=== PATIENT | male | born 2000 | race Caucasian/White ===

== ENCOUNTER 2021-03-22 15:10 | Emergency (ER) | payer OTHER, SELFPAY ==
[2021-03-22 15:21] VITALS: BP 124/70; PULSE 79; RESP 20; TEMP 36.6; O2SAT 100
--- NOTE | 2021-03-22 15:29 | ED.EAR ---
HPI - Ear Problem General Chief complaint: Ear Stated complaint: ear infection Time Seen by Provider: 03/22/21 15:25 Source: patient Mode of arrival: ambulatory Limitations: no limitations History of Present Illness HPI Narrative: Demetrio Rosado is a 21 yo male with no PMH who comes to the [facility] care with L ear pain and sore throat last 3 days. Denies fever, states throat hurts more the left than the right. Is able to swallow fluids and eat some. Rates pain as a 6. He is being tested for thyroid disease. Related Data Allergies Allergy/AdvReac Type Severity Reaction Status Date / Time No Known Drug Allergies Allergy Mild unknown Verified 03/18/21 10:40 UNKNOWN Allergy unknown Uncoded 01/26/21 13:23 Review of Systems Review of Systems: Narrative: CONSTITUTIONAL: Denies fever, chills, sweats. EYES: Denies visual changes, redness, discharge. ENT: Denies rhinorrhea, congestion, has sore throat, left otalgia. CARDIOVASCULAR: Denies chest pain, palpitations, edema. RESPIRATORY: Denies dyspnea, wheezing, cough GASTROINTESTINAL: Denies abdominal pain, nausea, vomiting, diarrhea. GENITOURINARY: Denies dysuria, hematuria, abnormal discharge SKIN: Denies rash or itching. NEUROLOGIC: Denies numbness, or focal weakness. PSYCHIATRIC: Denies anxiety or depression. [facility]LY [facility] Family History Family History Father Diabetes mellitus Hypertension Grandparent Breast cancer Alcoholism Social History Social History Smoking status: Never smoker Alcohol intake: never Substance use: unknown Gender identity (if verbalized by the patient): Male Comments At time of signature, I agree with nursing past medical, surgical, social and family history. There is no relevant family history pertinent to the presenting complaint. Exam Narrative: Exam Narrative: GENERAL: This is a well-nourished, well-developed patient, in mild distress. HEAD: normocephalic, atraumatic. EYES: Sclera clear/white. Vision is grossly intact. EARS: External ears normal, auditory canals some cerumen and without drainage, fluid behind TMs, left erythema without perforation. Hearing grossly intact. NOSE: External nose normal without nasal discharge, nares without redness, no rhinorrhea. THROAT: Mucous membranes moist, posterior pharynx erythema NECK: Neck supple, tender submandibular lymph node on left CARDIOVASCULAR: Regular rate and rhythm without murmurs, gallops, or rubs. RESPIRATORY: Clear to auscultation. Breath sounds equal bilaterally. No wheezes, rales, or rhonchi. GASTROINTESTINAL: Abdomen soft, non-tender, SKIN: warm, intact with no suspicious lesions or rash, good texture and turgor. NEURO: awake, alert, and oriented to person, place and time. There were no obvious focal neurologic abnormalities. Steady gait EXTREMITIES: Normal range of motion. BACK: Nontender without deformity Course Course Emergency Course: She comes to [facility] with left ear pain and sore throat x 3 days Strep test is positive Started on amoxicillin 500mg bid x 10 days, work excuse given Follow up with pcp Vital Signs Vital signs: Vital Signs Temperature 98 F 03/22/21 15:21 Pulse Rate 79 03/22/21 15:21 Respiratory Rate 20 03/22/21 15:21 Blood Pressure 124/70 03/22/21 15:21 Pulse Oximetry 100 03/22/21 15:21 Temperature 98 F 03/22/21 15:21 Pulse Rate 79 03/22/21 15:21 Respiratory Rate 20 03/22/21 15:21 Blood Pressure 124/70 03/22/21 15:21 Pulse Oximetry 100 03/22/21 15:21 Medical Decision Making Differential Diagnosis Differential Diagnosis: Pharyngitis versus strep throat versus otitis media versus otitis externa Vital Signs Vital Signs: Vital Signs Temperature 98 F 03/22/21 15:21 Pulse Rate 79 03/22/21 15:21 Respiratory Rate 20 03/22/21 15:21 Blood Pressure 124/70 03/22/21 15:21 Pulse Oximetry 100
== END 2021-03-22 15:56 | disposition home or self-care (01) ==
PROVIDERS: Emergency Provider Nurse Practitioner; PCP Physician Assistant
DX: H66.002 Acute suppurative otitis media without spontaneous rupture of ear drum, left ear (principal); J02.0 Streptococcal pharyngitis
CPT/HCPCS: 87880; 99203; G0463

== ENCOUNTER 2021-05-31 12:50 | Emergency (ER) | payer OTHER, SELFPAY ==
[2021-05-31 13:03] VITALS: BP 125/77; PULSE 77; RESP 16; TEMP 36.7; O2SAT 100
--- NOTE | 2021-05-31 13:29 | ED.GENADULT ---
HPI - General Adult General Chief complaint: Upper Respiratory Infection Stated complaint: sore throat Time Seen by Provider: 05/31/21 13:10 Source: patient and RN notes reviewed Mode of arrival: ambulatory Limitations: no limitations History of Present Illness HPI narrative: 21-year-old male presents with complaints of sore throat and LT otalgia for the past 2 days. ?Demetrio reports increasing sore throat and intermittent headache (not the worst of his life) throughout the night and today. ?Ibuprofen was taken last today at 08:00 ?with little relief. ?No high fevers, drooling, neck or throat swelling. ?Pain is bilateral. ?Hurts to swallow. ?Exacerbation factors consist of eating and drinking. ?No rhinorrhea. ?Nasal congestion. ?No voice change. ?Denies ear drainage, itching, hearing loss, or trauma. ?No nausea, vomiting, or abdominal pain. ?Tolerating liquids well. ?Denies chills, dyspnea, difficulty swallowing, jaw pain, dental pain, facial pain, foreign body sensation, and rash. ?Remains active. ?The patient reports he has not been diagnosed with COVID-19. ?The patient reports he received [facility] COVID-19 vaccines. ?The patient reports he is not waiting for the results of a COVID-19 lab test. ?The patient reports he does not have weakness, fatigue, or myalgia. ?The patient reports he does not have a new or worsening cough or shortness of breath. ?The patient reports he does not have any loss of taste or smell and diarrhea. ?Denies recent traveling. ?Denies concerns for COVID-19 or exposures. ?At this time, the patient is not suspected of having COVID-19. Some parts of this dictation were generated by voice recognition software and may contain typographical and/or grammatical inaccuracies. Related Data Allergies Allergy/AdvReac Type Severity Reaction Status Date / Time No Known Allergies Allergy Verified 05/31/21 13:19 Review of Systems Review of Systems: CONSTITUTIONAL: Denies fever, chills, sweats. EYES: Denies visual changes, redness, discharge. ENT: Denies rhinorrhea. Complains of sore throat, congestion, LT otalgia. CARDIOVASCULAR: Denies chest pain, palpitations, edema. RESPIRATORY: Denies dyspnea, wheezing, cough. GASTROINTESTINAL: Denies abdominal pain, nausea, vomiting, diarrhea. SKIN: Denies rash or itching. MUSCULOSKELETAL: Denies acute back pain, joint pain, or myalgia. NEUROLOGIC: Denies numbness or focal weakness. Complaints of intermittent JIMÉNEZ. PSYCHIATRIC: Denies anxiety or depression. All systems reviewed & are unremarkable except as noted in HPI and below. [facility] Past Medical History Medical History (Updated 06/01/21 @ 00:01 by Delmi Aguirre) Abnormal TSH Obesity (BMI 30.0-34.9) Surgical History Surgical History (Updated 05/31/21 @ 13:37 by TRAM Villalpando) No significant past surgical history Family History Family History (Updated 05/31/21 @ 13:38 by TRAM Villalpando) Father Diabetes mellitus Hypertension Grandparent Breast cancer Alcoholism Mother Alive and well Social History Social History (Updated 05/31/21 @ 13:39 by TRAM Villalpando) Smoking status: Light tobacco smoker Tobacco type: cigars Second hand tobacco smoke exposure: No Alcohol intake: never Substance use: current Substance use type: marijuana Living arrangements: with family Occupation/Education: occupation Gender identity (if verbalized by the patient): Male Comments At time of signature, agree with the nurse past medical, surgical, social, and family history. There is no relevant family history pertinent to the presenting complaint. Exam Narrative: GENERAL: This is a well-nourished, well-developed patient, in no apparent distress. Speaks in full sentences without deficits and ambulates with steady gait without dyspnea. HEAD: Normocephalic, atraumatic. EYES: PERRL. Sclera clear/white. Vision is grossly intact. EARS: External ears normal, auditory canals clear and
== END 2021-05-31 13:54 | disposition home or self-care (01) ==
PROVIDERS: Emergency Provider Nurse Practitioner Family; PCP Internal Medicine
DX: J02.9 Acute pharyngitis, unspecified (principal); K12.0 Recurrent oral aphthae; E66.9 Obesity, unspecified; Z68.33 Body mass index [BMI] 33.0-33.9, adult; Z72.0 Tobacco use
CPT/HCPCS: 87081; 87880; 99213; G0463

== ENCOUNTER → 2021-06-27 07:00 | Outpatient (CLI) | payer OTHER, SELFPAY ==
[2021-06-27 21:00] LABS: SARS-CoV-2 RNA PCR Negative
== END ==
PROVIDERS: PCP Internal Medicine; Visit Provider Physician Assistant
DX: R68.89 Other general symptoms and signs (principal); Z20.828 Contact with and (suspected) exposure to other viral communicable diseases
CPT/HCPCS: C9803; U0003; U0005

== ENCOUNTER 2022-04-05 17:33 | Emergency (ER) | payer OTHER, SELFPAY ==
--- NOTE | 2022-04-05 17:38 | ED.EAR ---
HPI - Ear Problem General Chief complaint: Ear Stated complaint: lt ear pain Time Seen by Provider: 04/05/22 17:39 Source: patient Mode of arrival: ambulatory Limitations: no limitations History of Present Illness HPI Narrative: Mr. Rosado is a 22-year-old male patient presenting to the clinic today with complaints of left ear pain x2 days. He reports he is prone to getting ear infections. He reports that he is also having some pain in his throat on the left side. He denies any fever or chills. He denies any known exposure to anybody with COVID, flu, or strep. MD Complaint: ear pain Location: left ear Related Data Allergies Allergy/AdvReac Type Severity Reaction Status Date / Time No Known Allergies Allergy Verified 04/05/22 17:40 Review of Systems Review of Systems: Pertinent positives per HPI. Patient denies any fever, chills, rash, headache, visual changes, dizziness, cough, runny nose, sore throat, shortness of breath, chest pain, palpitations, nausea, vomiting, diarrhea, constipation, abdominal pain, or any urinary issues. PMFSH Past Medical History Medical History Abnormal TSH Obesity (BMI 30.0-34.9) Surgical History Surgical History No significant past surgical history Family History Family History Father Diabetes mellitus Hypertension Grandparent Breast cancer Alcoholism Mother Alive and well Social History Social History Smoking status: Current some day smoker Tobacco type: cigars Second hand tobacco smoke exposure: No Alcohol intake: never Substance use: current Substance use type: marijuana Gender identity (if verbalized by the patient): Male Comments At the time of my signature, I reviewed and agree with the nursing past medical, surgical, social, and family history. There is no relevant family history pertinent to the patient complaint. Exam Narrative: General: Well-developed, well nourished, in no apparent distress Head: Normocephalic, atraumatic Eyes: Pupils equally round and reactive to light bilaterally, EOM intact, sclera and conjunctive clear, no discharge, lids normal Ears: Right TMs intact and clear, left TM dull, intact, with mild bulging,ear canals clear, no drainage, grossly hearing normal. Nose: Nares patent, clear nasal discharge, mild inflammation, no sinus tenderness. Mouth: Oropharynx without lesions or masses, good dentition, MMM. Postnasal drip Neck: Supple, trachea midline, no enlargement of anterior or posterior cervical nodes, no thyroid masses or goiter palpable. Cardio: Regular rate and rhythm, s1 and s2 normal, no murmur appreciated. Resp: Clear to auscultation bilaterally anteriorly and posteriorly, no rhonchi, rales, wheezing or rubs Course Course Emergency Course: Portions of this record may have been created with voice recognition software. Level of Care: Express Care Visit Vital Signs Vital signs: Vital signs reviewed Medical Decision Making MDM Narrative Medical decision making narrative: At the time of visit patient is resting comfortably on the exam table. Exam shows that he has eustachian tube dysfunction. He is complaining of a sore throat as well on the left side so I went ahead and did a strep screen which was negative in the clinic. We will send for culture. Supportive measures were discussed with the patient. I will send in a prescription for some prednisone to help with the congestion and alleviate the ear pressure. Patient voiced understanding of the discharge instructions and agrees to the treatment plan. Discharge Plan Discharge Clinical Impression: Acute dysfunction of left eustachian tube Patient Disposition: Home, Self-Care Condition: Stable Instructions
[2022-04-05 17:46] VITALS: BP 122/87; PULSE 85; RESP 16; TEMP 37.1; O2SAT 100
== END 2022-04-05 18:04 | disposition home or self-care (01) ==
PROVIDERS: Emergency Provider Nurse Practitioner Family; PCP Internal Medicine
DX: H69.92 Unspecified Eustachian tube disorder, left ear (principal); F17.290 Nicotine dependence, other tobacco product, uncomplicated; E66.9 Obesity, unspecified; Z68.31 Body mass index [BMI] 31.0-31.9, adult
CPT/HCPCS: 87081; 87880; 99213; G0463

== ENCOUNTER 2022-05-10 16:17 | Emergency (ER) | payer OTHER, SELFPAY ==
[2022-05-10 16:28] VITALS: BP 135/79; PULSE 84; RESP 18; TEMP 37.2; O2SAT 99
--- NOTE | 2022-05-10 17:03 | ED.URI ---
HPI - URI/Sore Throat General Chief Complaint: Upper Respiratory Infection Stated Complaint: sorethroat,rt ear pain Time Seen by Provider: 05/10/22 16:40 Source: patient Mode of arrival: ambulatory Limitations: no limitations History of Present Illness HPI Narrative: Patient presents today complaining of 4-day history of sore throat, right ear pain, cough, headache, subjective fever. States he also vomited 1 time today. Currently rates his pain 5/10 and has been taking ibuprofen and Mucinex with mild relief. Reports his girlfriend was diagnosed with COVID-19 4 days ago. He has done 3 home COVID test that were all negative. Denies chest pain, shortness of breath. Related Data Allergies Allergy/AdvReac Type Severity Reaction Status Date / Time No Known Allergies Allergy Verified 05/10/22 16:37 Review of Systems Review of Systems: CONSTITUTIONAL: Denies body aches, chills, or sweats.+ Subjective fever EYES: Denies visual changes, redness, or discharge. ENT: Denies rhinorrhea, congestion.+ Sore throat, right ear pain CARDIOVASCULAR: Denies chest pain, palpitations, or edema. RESPIRATORY: Denies dyspnea.+ Cough GASTROINTESTINAL: Denies abdominal pain, nausea, vomiting, or diarrhea. GENITOURINARY: Denies dysuria or hematuria. SKIN: Denies rash, itching, or wounds. MUSCULOSKELETAL: Denies back pain, joint pain, or myalgia. NEUROLOGIC: Denies numbness, tingling, or weakness.+ Headache PSYCH: Denies depression or anxiety. FORMERLY [facility] Past Medical History Medical History Abnormal TSH Obesity (BMI 30.0-34.9) Surgical History Surgical History No significant past surgical history Family History Family History Father Diabetes mellitus Hypertension Grandparent Breast cancer Alcoholism Mother Alive and well Social History Social History Smoking status: Current some day smoker Tobacco type: cigars Second hand tobacco smoke exposure: No Alcohol intake: never Substance use: current Substance use type: marijuana Gender identity (if verbalized by the patient): Male Comments At time of signature, I have reviewed and agree with nursing past medical, surgical, social and family history unless otherwise noted. Please see nursing chart for further information. There is no relevant family history pertinent to the presenting complaint Exam Narrative: GENERAL: Well-appearing, well-nourished, and in no acute distress. HEAD: Normocephalic, atraumatic. EYES: EOMI. No redness or drainage. Conjunctivae normal. ENT: Mucous membranes pink and moist. Nares clear. No rhinorrhea. TMs normal bilaterally. Mild right middle ear effusion without evidence of bacterial infection. normal. Uvula midline. NECK: Normal AROM. Supple. No lymphadenopathy. CHEST: No respiratory distress. Clear to auscultation. HEART: Regular rate and rhythm. No murmur appreciated. Normal peripheral pulses. EXTREMITIES: Normal range of motion. No edema. SKIN: Warm, dry, no rash. Capillary refill normal. Normal skin turgor. NEURO: No focal deficits. Alert and oriented x3. Gait steady. PSYCH: Normal affect. No signs of depression or anxiety. Course Course Level of Care: Express Care Visit Vital Signs Vital signs: Vital Signs Temperature 99 F 05/10/22 16:28 Pulse Rate 84 05/10/22 16:28 Respiratory Rate 18 05/10/22 16:28 Blood Pressure 135/79 05/10/22 16:28 Pulse Oximetry 99 05/10/22 16:28 Oxygen Delivery Room Air 05/10/22 16:28 Temperature 99 F 05/10/22 16:28 Pulse Rate 84 05/10/22 16:28 Respiratory Rate 18 05/10/22 16:28 Blood Pressure 135/79 05/10/22 16:28 Pulse Oximetry 99 05/10/22 16:28 Oxygen Delivery Room Air 05/10/22 16:28 Reviewed. Pt has been
== END 2022-05-10 17:18 | disposition home or self-care (01) ==
PROVIDERS: Emergency Provider Nurse Practitioner; PCP Physician Assistant
DX: J06.9 Acute upper respiratory infection, unspecified (principal); Z20.822 Contact with and (suspected) exposure to COVID-19; F17.290 Nicotine dependence, other tobacco product, uncomplicated; E66.9 Obesity, unspecified; Z68.31 Body mass index [BMI] 31.0-31.9, adult
CPT/HCPCS: 87081; 87426; 87804; 87880; 99213; C9803; G0463

== ENCOUNTER 2022-07-19 12:29 | Emergency (ER) | payer OTHER, SELFPAY ==
[2022-07-19 12:41] VITALS: BP 129/80; PULSE 97; RESP 18; TEMP 36.9; O2SAT 100
--- NOTE | 2022-07-19 12:49 | ED.URI ---
HPI - URI/Sore Throat General Chief Complaint: Upper Respiratory Infection Stated Complaint: sorethroat Time Seen by Provider: 07/19/22 12:49 Source: patient and RN notes reviewed Mode of arrival: ambulatory Limitations: no limitations History of Present Illness HPI Narrative: 22-year-old male presented for complaints of sore throat for 3 days. Also endorses sinus pressure and congestion, postnasal drainage and productive cough. At the onset he endorses a subjective low-grade fever, headache and nausea. Took a negative home COVID test yesterday. He denies chest pain, shortness of breath, vomiting, fevers or chills. Taking [id number] medication for symptoms. Denies sick contacts. MD elicited complaint: cough Related Data Allergies Allergy/AdvReac Type Severity Reaction Status Date / Time No Known Allergies Allergy Verified 07/19/22 12:48 Review of Systems Review of Systems: CONSTITUTIONAL: Denies malaise, chills, sweats EYES: Denies visual changes, redness, or discharge ENT: Reports rhinorrhea, congestion, sinus pain, otalgia, sore throat CARDIOVASCULAR: Denies chest pain, palpitations, edema RESPIRATORY: Reports cough, post nasal drainage. Denies dyspnea GASTROINTESTINAL: Denies abdominal pain, nausea, vomiting, diarrhea SKIN: Denies rash or itching MUSCULOSKELETAL: Denies myalgia PMFSH Past Medical History Medical History Abnormal TSH Obesity (BMI 30.0-34.9) Surgical History Surgical History No significant past surgical history Family History Family History Father Diabetes mellitus Hypertension Grandparent Breast cancer Alcoholism Mother Alive and well Social History Social History Smoking status: Current some day smoker Tobacco type: cigars Second hand tobacco smoke exposure: No Alcohol intake: never Substance use: current Substance use type: marijuana Gender identity (if verbalized by the patient): Male Exam Narrative: GENERAL: well-appearing EYES: PERRLA, conjunctivae clear ENT: Mucous membranes moist. TMs pearly begum with normal l light reflex bilaterally; no tragal tenderness. Oropharynx erythematous without lesions or exudate, no drooling, no hoarseness, no trismus, uvula midline. No tripod positioning, muffled voice, soft palate or pharyngeal wall bulging NECK: Supple. No lymphadenopathy CHEST: Clear to auscultation, breath sounds equal. HEART: Regular rate and rhythm. No murmur heard. SKIN: Warm, dry, no rash. NEURO: Alert and oriented x3. Course Course Emergency Course: Patient is aware of diagnosis, understands and agrees to treatment plan. Anticipatory guidance given. Patient agrees to follow-up as directed and is aware of reasons to seek care at the emergency department. Portions of this record may have been created with voice recognition software Level of Care: Express Care Visit Vital Signs Vital signs: Vital Signs Temperature 98.4 F 07/19/22 12:41 Pulse Rate 97 07/19/22 12:41 Respiratory Rate 18 07/19/22 12:41 Blood Pressure 129/80 07/19/22 12:41 Pulse Oximetry 100 07/19/22 12:41 Oxygen Delivery Room Air 07/19/22 12:41 Temperature 98.4 F 07/19/22 12:41 Pulse Rate 97 07/19/22 12:41 Respiratory Rate 18 07/19/22 12:41 Blood Pressure 129/80 07/19/22 12:41 Pulse Oximetry 100 07/19/22 12:41 Oxygen Delivery Room Air 07/19/22 12:41 reviewed MDM - URI/Sore Throat MDM Narrative Medical decision making narrative: Strep negative. Advised supportive measures and signs/symptoms to go to the ER. Pt is appropriate for outpt treatment and f/u. Differential Diagnosis Differential diagnosis: Likely upper respiratory infection, sinusitis, viral infection and pharyngitis Discharge Plan
== END 2022-07-19 13:01 | disposition home or self-care (01) ==
PROVIDERS: Emergency Provider Nurse Practitioner Family; PCP Internal Medicine
DX: J30.9 Allergic rhinitis, unspecified (principal); F17.290 Nicotine dependence, other tobacco product, uncomplicated
CPT/HCPCS: 87081; 87880; 99213; G0463

== ENCOUNTER 2023-01-01 10:48 | Emergency (ER) | payer OTHER, SELFPAY ==
[2023-01-01 11:11] VITALS: BP 123/71; PULSE 82; RESP 16; TEMP 36.3; O2SAT 100
--- NOTE | 2023-01-01 11:40 | ED.GENADULT ---
HPI - General Adult General Chief complaint: Upper Respiratory Infection Stated complaint: sorethroat Time Seen by Provider: 01/01/23 11:40 Source: patient Mode of arrival: ambulatory Limitations: no limitations History of Present Illness HPI narrative: 22-year-old male patient presents to the [facility] with complaints of sore throat past 5 days. Patient states he has also had a cough coughing up mucus with a slight runny nose congestion. Fevers, body aches or chills any abdominal pain, nausea vomiting or diarrhea. Patient states he has been taking [id number] Mucinex, cough drops and ibuprofen for his symptoms. Related Data Home Medications Medication Instructions Recorded Confirmed No Home Medications 01/01/23 01/01/23 Allergies Allergy/AdvReac Type Severity Reaction Status Date / Time No Known Allergies Allergy Verified 01/01/23 11:37 Review of Systems Review of Systems: CONSTITUTIONAL: Denies fever, chills, or sweats. EYES: Denies visual changes, redness, or discharge. ENT: positive rhinorrhea, congestion, sore throat, denies otalgia. CARDIOVASCULAR: Denies chest pain, palpitations, or edema. RESPIRATORY: positive cough, denies dyspnea. GASTROINTESTINAL: Denies abdominal pain, nausea, vomiting, or diarrhea. GENITOURINARY: Denies dysuria or hematuria. SKIN: Denies rash or itching. MUSCULOSKELETAL: Denies back pain, joint pain, or myalgia. NEUROLOGIC: Denies headache, numbness, or weakness. PSYCHIATRIC: Denies anxiety or depression. [facility] Past Medical History Medical History Abnormal TSH Obesity (BMI 30.0-34.9) Surgical History Surgical History No significant past surgical history Family History Family History Father Diabetes mellitus Hypertension Grandparent Breast cancer Alcoholism Mother Alive and well Social History Social History Smoking status: Current some day smoker Tobacco type: cigars Second hand tobacco smoke exposure: No Alcohol intake: never Substance use: current Substance use type: marijuana Living arrangements: with family Occupation/Education: occupation Gender identity (if verbalized by the patient): Male Comments At the time of my signature I agree with nursing past medical history, surgical, social, and family history. There is no relevant family history pertinent to the presenting complaint. Exam Narrative: GENERAL: Well-appearing, well-nourished, and in no acute distress. HEAD: Normocephalic, atraumatic. EYES: PERRLA and EOMI. ENT: Nares With erythema and edema noted bilaterally, no rhinorrhea or epistaxis. Mucous membranes moist. posterior pharynx with no erythema, tonsillar enlargement, exudates or lesions present. There is some postnasal drip noted. Bilateral TMs are clear no erythema or foreign bodies in the canal. NECK: Supple. No lymphadenopathy CHEST: Clear to auscultation. No respiratory distress. HEART: Regular rate and rhythm. No murmur heard. Normal peripheral pulses. ABDOMEN: Soft, nontender, nondistended, normal active bowel sounds. EXTREMITIES: Normal range of motion. No edema. SKIN: Warm, dry, no rash. NEURO: No focal deficits. Alert and oriented x3. Course Course Level of Care: Express Care Visit Vital Signs Vital signs: Vital Signs Temperature 36.3 C L 01/01/23 11:11 Pulse Rate 82 01/01/23 11:11 Respiratory Rate 16 01/01/23 11:11 Blood Pressure 123/71 01/01/23 11:11 Pulse Oximetry 100 01/01/23 11:11 Oxygen Delivery Room Air 01/01/23 11:11 Temperature 36.3 C L 01/01/23 11:11 Pulse Rate 82 01/01/23 11:11 Respiratory Rate 16 01/01/23 11:11 Blood Pressure 123/71 01/01/23 11:11 Pulse Oximetry 100 01/01/23 11:11 Oxygen Delivery Room Air 01/01/23 11:11
== END 2023-01-01 11:54 | disposition home or self-care (01) ==
PROVIDERS: Emergency Provider Nurse Practitioner Family; PCP Internal Medicine
DX: J02.9 Acute pharyngitis, unspecified (principal); F17.290 Nicotine dependence, other tobacco product, uncomplicated; F12.90 Cannabis use, unspecified, uncomplicated; E66.9 Obesity, unspecified; Z68.38 Body mass index [BMI] 38.0-38.9, adult
CPT/HCPCS: 87081; 87880; 99213; G0463

== ENCOUNTER 2023-03-05 19:16 | Emergency (ER) | payer OTHER, SELFPAY ==
[2023-03-05 19:28] VITALS: BP 130/89; PULSE 89; RESP 16; TEMP 36.4; O2SAT 99
[2023-03-05 19:58] LABS: Basophils Absolute Auto 0.1 K/mm3 (0.0-0.1); Basophils Percent Auto 0.8 % (0.2-1.2); Eosinophils Absolute Auto 0.1 K/mm3 (0-0.3); Eosinophils Percent Auto 1.7 % (0-4.4); Hematocrit 43.3 % (42.0-52.0); Hemoglobin 14.8 g/dL (14.0-18.0); Immature Granulocyte Absolute 0.01 K/mm3 (0.00-0.031); Immature Granulocyte Percent A 0.2 % (0-0.5); Lymphocytes Absolute Auto 1.81 K/mm3 (0.9-3.2); Mean Corpuscular HGB Conc 34.2 g/dl (32-36); Mean Corpuscular Hemoglobin 28.9 pg (26-34); Mean Corpuscular Volume 84.6 fl (80-100); Mean Platelet Volume 9.8 fl (7.4-10.4); Monocytes Absolute Auto 0.7 K/mm3 (0.1-0.6); Monocytes Percent Auto 11.1 % (2.6-8.5); Neutrophils Absolute Auto 3.8 K/mm3 (1.3-6.7); Neutrophils Percent Auto 58.2 % (45.5-73.1); Platelet Count Result 287 k/mm3 (150-375); Red Blood Count 5.12 M/mm3 (4.6-6.20); Red Cell Distribution Width 12.3 % (11.5-14.5); White Blood Count 6.5 K/mm3 (4.5-10.0)
[2023-03-05 20:01] LABS: Appearance Urine Clear (Clear); Bilirubin Urine Negative (Negative); Blood Urine Negative (Negative); Color Urine Yellow (Yellow); Glucose Urine UA Negative (Negative); Ketones Urine Negative (Negative); Leukocyte Esterase Ur Negative LEU/UL (Negative); Nitrate Urine Negative (Negative); Protein Urine Negative (Negative); Specific Grav Ur 1.027 (1.001-1.035); Urobilinogen Urine 0.2 mg/dL (<2.0); pH Urine 5.5 (5.0-9.0)
[2023-03-05 20:09] LABS: Alanine Aminotransferase 37 U/L (6-50); Albumin Level 4.7 g/dL (3.5-5.1); Alkaline Phosphatase 55 U/L (38-126); Anion Gap 11 mmol/L (8-16); Aspartate Amino Transferase 32 U/L (17-59); Bilirubin,Total 0.5 mg/dL (0.2-1.3); Blood Urea Nitrogen 17 mg/dL (9-20); Calcium 9.5 mg/dL (8.4-10.2); Carbon Dioxide 23 mmol/L (22-30); Chloride 104 mmol/L (98-107); Estimated CRCL calculation 113 ml/min; Estimated Glomerular Filt Rate > 60; Glucose 100 mg/dL (65-110); Lipase 138 U/L (23-300); Potassium 4.1 mmol/L (3.4-5.0); Sodium 138 mmol/L (137-145)
[2023-03-05 20:34] LABS: Add Urine Microscopic? NO
[2023-03-05 22:00] VITALS: BP 127/98; PULSE 90; RESP 15; TEMP 36.4; O2SAT 97
--- NOTE | 2023-03-05 23:01 | ED.GENADULT ---
HPI - General Adult General Chief complaint: Nausea/Vomiting/Diarrhea Stated complaint: vomiting Time Seen by Provider: 03/05/23 21:58 History of Present Illness HPI narrative: This is a 23-year-old male presenting ED a chief complaint of vomiting blood. Patient had a meal of Chick filet earlier today. He then had 1 episode of vomiting that he was concerned had blood in it. He says that it was red. No coffee-grounds. Patient has some mild abdominal pain at this point that is diffuse throughout his abdomen and is not bothering him very much. Patient denies melena or hematochezia. He has no history of gastritis or epigastric pain. Related Data Allergies Allergy/AdvReac Type Severity Reaction Status Date / Time No Known Allergies Allergy Verified 02/08/23 09:40 [facility] Past Medical History Medical History Abnormal TSH Obesity (BMI 30.0-34.9) Surgical History Surgical History No significant past surgical history Family History Family History Father Diabetes mellitus Hypertension Grandparent Breast cancer Alcoholism Mother Alive and well Social History Social History Smoking status: Former smoker Tobacco type: cigars Second hand tobacco smoke exposure: No Alcohol intake: never Substance use: current Substance use type: marijuana Lack of Transportation: No Lack of Food: Never True Current Housing: I Have Housing Concerned About Future Housing: No Difficulty Paying Gas/Electric Bills: No Difficulty Paying for Meds: No Currently Unemployed: No Education: Associate Degree Difficulty w/ Childcare or Family Care: No Living arrangements: with family Occupation/Education: occupation Gender identity (if verbalized by the patient): Male Exam Narrative: APPEARANCE: No apparent distress. patient is well. Head: atraumatic. EYES: EOMI, NOSE: Atraumatic NECK: Trachea midline RESPIRATORY: No increased rate of breathing , clear to auscultation CARDIOVASCULAR: RRR, ABDOMINAL: Abdomen is soft, nontender no guarding or rebound MUSCULOSKELETAl: No obvious deformities NEURO: Alert. Moving 4/4 extremities SKIN:: Warm, dry. Normal color PSYCHIATRIC: Normal affect Course Vital Signs Vital signs: Vital Signs Temperature 97.6 F 03/05/23 19:28 Pulse Rate 89 03/05/23 19:28 Respiratory Rate 16 03/05/23 19:28 Blood Pressure 130/89 03/05/23 19:28 Pulse Oximetry 99 03/05/23 19:28 Oxygen Delivery Room Air 03/05/23 19:28 Temperature 97.6 F 03/05/23 22:00 Pulse Rate 90 03/05/23 22:00 Respiratory Rate 15 03/05/23 22:00 Blood Pressure 127/98 H 03/05/23 22:00 Pulse Oximetry 97 03/05/23 22:00 Oxygen Delivery Room Air 03/05/23 19:28 Medical Decision Making MDM Narrative Medical decision making narrative: -Presentation: 23-year-old presenting with concerns for bloody vomiting. Patient is currently resting comfortably with normal abdominal exam and stable vital signs. -DDX includes but is not limited to: Nausea and vomiting, food poisoning, gastritis -Co-morbidities complicating care: obesity, depression -Social determinants of health: patient works at [id number] with mom -External Chart Review: review primary care office note on January 2023 -Hx from independent Sources: mother @bedside -Discussion of Management/Consultants: none -Independent interpretation of studies: laboratory studies were within normal limits. Urinalysis not indicative of infection. Dx tests considered but not ordered: None -Procedures: none -Interventions: none -Shared decision making / Disposition: patient's history physical and workup were all reassuring. He does not have recurrence of his nausea and vomiting. Patient has no his
== END 2023-03-05 23:37 | disposition home or self-care (01) ==
PROVIDERS: Emergency Provider Emergency Medicine; PCP Physician Assistant
DX: R11.2 Nausea with vomiting, unspecified (principal); Z87.891 Personal history of nicotine dependence
CPT/HCPCS: 36415; 80053; 81003; 83690; 85025; 99283

== ENCOUNTER 2025-05-05 14:36 | Emergency (ER) | payer BC, OTHER, SELFPAY ==
--- OUTSIDE RECORDS SUMMARY | 2025-05-05 14:38 | XMS_ITS | Patient Health Record ---
Author Organization [facility] As [employer] Address [facility] [facility] [address] [place] [address] Care Team Providers Care Manager Paid Name Role Phone Richie Pedroza Unavailable [phone] Allergies No Known Allergies Results Component Value Reference Range Notes UDT Reviewed date:10/03/2024 08:30:26 AM Interpretation: Performing Lab: Notes/Report: THC N 0 - 50 ng/ml Cocaine N 0 - 300 ng/ml Amphetamine N 0 - 1000 ng/ml Buprenorphine (BUP) N 0 - 10 ng/ml Secobarbital (Bar) N 0 - 300 ng/ml Oxazepam (BZO) N 0 - 300 ng/ml 0-fmcymhdwip-0,2-elkmendp-6,3-diphenylpyrrolidine (PITA P) N 0 - 300 ng/ml Methamphetamine (MET) N 0 - 1000 ng/ml Methylenedioxymethamphetamine (MDMA) N 0 - 500 ng/ml Morphine (MOP 300/[id number]) N 0 - 300 ng/ml Methadone (MTD) N 0 - 300 ng/ml Phencyclidine (PCP) N 0 - 25 ng/ml Nortriptyline (TCA) N 0 - 1000 ng/ml Oxycodone N 0 - 300 ng/ml x N 0 - 300 ng/ml Reason For Referral No Information Medications Medication SIG (Take, Route, Fr equency, Duration) Notes Start Date End Date Status FLUoxetine HCl 20 MG 1 capsule Orally On ce a day; Duration: 30 days 10/02/2024 Active Social History Tobacco Use: Social History Observation Description Date Details (start date - stop date) Never Smoker NA - NA Sex Assigned At : Social History Observation Description Sex Assigned At Male Tobacco Control (Standard) Question Answer Notes Tobacco use: Nonsmoker AUDIT-C (Standard) Question Answer Notes Did you have a drink contain ing alcohol in the past year? Yes How often did you have six o r more drinks on one occasion in the past year? 2 to 3 times per week (3 points) How many drinks did you have on a typical day when you were drinking in the past year? 1 or 2 drinks (0 point) How often did you have a dri nk containing alcohol in the past year? Monthly or less (1 point) Points 4 Interpretation Positive Problems Problem Type SNOMED Code ICD Code Onset Dates Problem Status W/U Status Risk Notes Problem Severe major depression, single episode, without psychotic features (48779187) MDD (major depressive disorder), severe (F32.2) Active confirmed Problem Feeling suicidal (733441158) Passive suicidal ideations (R45.851) Active confirmed Vital Signs Heart Rate 77 /min 10/02/2024 Blood pressure diastolic 81 mm Hg 10/02/2024 Weight-kg 118.48 kg 10/02/2024 Blood pressure systolic 105 mm Hg 10/02/2024 Weight 261.2 lbs 10/02/2024 Encounters Encounter Location Date Provider Diagnosis [facility] [place] [facility] [address] 10/02/2024 Richie Clubb MDD (major depressiv e disorder), severe F32.2 and Passive suicidal ideations R45.851 [facility] [employer] [facility], [place] [address] [facility] [address] [place] [address] 11/13/2024 Richie Clubb [facility] [employer] [facility] [address] [address] 11/04/2024 Richie Clubb MDD (major depressiv e disorder), severe F32.2 Assessments Encounter Date Diagnosis (ICD Code) Assessment Notes Treatment Notes Treatment Clinical Notes Section Notes 10/02/2024 MDD (major depressive disorder), severe (ICD-10 - F32.2) Assessment and plan reviewed with patient Call for problems with medication, side effects or need for dosage change Compliance issues reviewed Discussed the risks/benefits of this medication Discussed medication side effects Return if symptoms worsen Treatment options reviewed. discussed that it can take weeks to see full therapeutic effects of psychotropic medications. discussed when to seek emergency services. discussed crisis prevention hotline [id number]. 1. Major Depressive Disorder, severe - Patient reports history of depression and recent passive suicidal thoughts. - BDI score: 27 (severe depression). - PHQ score: 19 (moderate to severe depression). - Patient reports feeling depressed for about 4 months, with similar episode end of 2020. - Start Fluoxetine (Prozac) for depression, instruct to take in morning. - Monitor for side effects and response to treatment. - Encourage re-establishing regular therapy sessions. - Follow up with primary care provider in October or return within 30 days. 2. Generalized Anxiety Disorder - REDD score: 8 (mild anxiety). - Fluoxetine (Prozac) may also help with anxiety symptoms. - Encourage continuing therapy for anxiety management. - Monitor response to treatment, consider additional interventions if needed. 3. Sleep disturbance - Patient reports waking up intermittently throughout the night. - Address sleep hygiene and encourage consistent sleep schedule. - Monitor sleep improvement with treatment of depression and anxiety. 4. Irregular appetite - Patient reports days of under-eating and over-eating due to job schedule. - Works 10-hour shifts from 6 am to 4 pm. - Encourage establishing regular eating schedule and balanced diet. - Monitor appetite changes with treatment of depression and anxiety. 5. Prior medication history - Patient previously took Bupropion but experienced emotional numbness. - Discontinue Bupropion and monitor response to Fluoxetine (Prozac). 6. Alcohol use - Patient reports occasional alcohol consumption, approximately once a week. - Advise avoiding alcohol while on Fluoxetine (Prozac) due to potential interactions and exacerbation of depression symptoms. 7. Medication management - Patient reports potential issues with medication compliance due to forgetfulness. - Educate on importance of consistent medication use. - Emphasize need for follow-up within 30 days, either with primary care or return visit. 8. Psychosocial factors - Patient lives with parents. - Recently started new job 3 months ago, source of stress. - Encourage continued family support. - Discuss stress management techniques related to new job. 9. Ongoing therapy - Patient has therapist but attendance has been sporadic recently. - Emphasize importance of regular therapy sessions. - Encourage resuming weekly therapy appointments. 10/02/2024 Passive suicidal ideations (ICD-10 - R45.851) Learning About Making a Suicide Safety Plan material was published 1. Major Depressive Disorder, severe - Patient reports history of depression and recent passive suicidal thoughts. - BDI score: 27 (severe depression). - PHQ score: 19 (moderate to severe depression). - Patient reports feeling depressed for about 4 months, with similar episode end of 2020. - Start Fluoxetine (Prozac) for depression, instruct to take in morning. - Monitor for side effects and response to treatment. - Encourage re-establishing regular therapy sessions. - Follow up with primary care provider in October or return within 30 days. 2. Generalized Anxiety Disorder - REDD score: 8 (mild anxiety). - Fluoxetine (Prozac) may also help with anxiety symptoms. - Encourage continuing therapy for anxiety management. - Monitor response to treatment, consider additional interventions if needed. 3. Sleep disturbance - Patient reports waking up intermittently throughout the night. - Address sleep hygiene and encourage consistent sleep schedule. - Monitor sleep improvement with treatment of depression and anxiety. 4. Irregular appetite - Patient reports days of under-eating and over-eating due to job schedule. - Works 10-hour shifts from 6 am to 4 pm. - Encourage establishing regular eating schedule and balanced diet. - Monitor appetite changes with treatment of depression and anxiety. 5. Prior medication history - Patient previously took Bupropion but experienced emotional numbness. - Discontinue Bupropion and monitor response to Fluoxetine (Prozac). 6. Alcohol use - Patient reports occasional alcohol consumption, approximately once a week. - Advise avoiding alcohol while on Fluoxetine (Prozac) due to potential interactions and exacerbation of depression symptoms. 7. Medication management - Patient reports potential issues with medication compliance due to forgetfulness. - Educate on importance of consistent medication use. - Emphasize need for follow-up within 30 days, either with primary care or return visit. 8. Psychosocial factors - Patient lives with parents. - Recently started new job 3 months ago, source of stress. - Encourage continued family support. - Discuss stress management techniques related to new job. 9. Ongoing therapy - Patient has therapist but attendance has been sporadic recently. - Emphasize importance of regular therapy sessions. - Encourage resuming weekly therapy appointments. 11/04/2024 MDD (major depressive disorder), severe (ICD-10 - F32.2) 10/02/2024 Other Learning About Depression Screening material was printed Learning About Depression Screening material was printed, Fluoxetine Oral Capsule (FLUOXETINE - ORAL) material was published 1. Major Depressive Disorder, severe - Patient reports history of depression and recent passive suicidal thoughts. - BDI score: 27 (severe depression). - PHQ score: 19 (moderate to severe depression). - Patient reports feeling depressed for about 4 months, with similar episode end of 2020. - Start Fluoxetine (Prozac) for depression, instruct to take in morning. - Monitor for side effects and response to treatment. - Encourage re-establishing regular therapy sessions. - Follow up with primary care provider in October or return within 30 days. 2. Generalized Anxiety Disorder - REDD score: 8 (mild anxiety). - Fluoxetine (Prozac) may also help with anxiety symptoms. - Encourage continuing therapy for anxiety management. - Monitor response to treatment, consider additional interventions if needed. 3. Sleep disturbance - Patient reports waking up intermittently throughout the night. - Address sleep hygiene and encourage consistent sleep schedule. - Monitor sleep improvement with treatment of depression and anxiety. 4. Irregular appetite - Patient reports days of under-eating and over-eating due to job schedule. - Works 10-hour shifts from 6 am to 4 pm. - Encourage establishing regular eating schedule and balanced diet. - Monitor appetite changes with treatment of depression and anxiety. 5. Prior medication history - Patient previously took Bupropion but experienced emotional numbness. - Discontinue Bupropion and monitor response to Fluoxetine (Prozac). 6. Alcohol use - Patient reports occasional alcohol consumption, approximately once a week. - Advise avoiding alcohol while on Fluoxetine (Prozac) due to potential interactions and exacerbation of depression symptoms. 7. Medication management - Patient reports potential issues with medication compliance due to forgetfulness. - Educate on importance of consistent medication use. - Emphasize need for follow-up within 30 days, either with primary care or return visit. 8. Psychosocial factors - Patient lives with parents. - Recently started new job 3 months ago, source of stress. - Encourage continued family support. - Discuss stress management techniques related to new job. 9. Ongoing therapy - Patient has therapist but attendance has been sporadic recently. - Emphasize importance of regular therapy sessions. - Encourage resuming weekly therapy appointments. Plan Of Treatment No Information Insurance Providers Payer Name Payer Address Payer Phone Subscriber Number Group Number Insured Name Patient Relationship to Insured Coverage Start Date Coverage End Date [facility] [address] [place] [phone] [id number] WADE POLK Self - patient is the insured [facility] [address] [place] [address] [id number] [employer]ADE [employer] Self - patient is the insured Medical (General) History Medical History History ICD Code abdominal aortic aneurysm: No atrial fibrillation: No chronic fatigue syndrome: No essential tremor: No hyperlipidemia: No hypertension: No Parkinson's disease: No restless leg syndrome: No stroke: No subdural hematoma: No type 1 diabetes mellitus: No type 2 diabetes mellitus: No vitamin B12 deficiency: No vitamin D deficiency: No Surgical History Surgery Date(Month/Year) wisdom teeth extraction turbinate reduction surgery
--- NOTE | 2025-05-05 14:45 | ED.URI ---
HPI - URI/Sore Throat General Chief Complaint: Upper Respiratory Infection Stated Complaint: Sore Throat / Cough Time Seen by Provider: 05/05/25 14:55 Source: patient and RN notes reviewed Mode of arrival: ambulatory Limitations: no limitations History of Present Illness HPI Narrative: 25-year-old male presents with concern for sore throat, cough, nasal drainage, headache for 4 days. Reports sinus pressure. He denies body aches, chills, fever, sweats. He has taken ibuprofen and Tylenol. MD elicited complaint: sore throat Related Data Allergies Allergy/AdvReac Type Severity Reaction Status Date / Time No Known Allergies Allergy Verified 05/05/25 14:40 Review of Systems Review of Systems: CONSTITUTIONAL: Denies malaise, chills, sweats, or fever. EYES: Denies visual changes, redness, or discharge. ENT: Reports rhinorrhea, congestion, and sore throat. CARDIOVASCULAR: Denies chest pain, palpitations, or edema. RESPIRATORY: Reports cough. Denies dyspnea. GASTROINTESTINAL: Denies abdominal pain, nausea, vomiting, diarrhea SKIN: Denies rash or itching. MUSCULOSKELETAL: Denies myalgia. NEUROLOGIC: Reports headache. All systems reviewed & are unremarkable except as noted in HPI and below PMFSH Past Medical History Medical History (Updated 05/05/25 @ 15:04 by Chanel Jacobson NP) BMI 39.0-39.9,adult Abnormal TSH Obesity (BMI 30.0-34.9) Surgical History Surgical History No significant past surgical history Family History Family History Father Diabetes mellitus Hypertension Grandparent Breast cancer Alcoholism Mother Alive and well Social History Social History (Updated 12/26/24 @ 14:27 by LINA Maynard) Smoking status: Current some day smoker Tobacco type: cigars Second hand tobacco smoke exposure: No Alcohol intake: never Substance use: current Substance use type: marijuana Do You Feel Safe in your Home?: Yes Lack of Transportation: No Lack of Food: Never True Current Housing: I Have Housing Concerned About Future Housing: No Difficulty Paying Gas/Electric Bills: No Difficulty Paying for Meds: No Currently Unemployed: No Education: Associate Degree Difficulty w/ Childcare or Family Care: No Living arrangements: with family Occupation/Education: occupation Additional occupation/education comments: [employer] Gender identity (if verbalized by the patient): Male Comments At time of signature, agree with nursing past medical, surgical, social and family history. There is no relevant family history pertinent to the presenting complaint Exam Narrative: GENERAL: Well-appearing, well-nourished, and in no acute distress. HEAD: Normocephalic EYES: PERRLA, conjunctivae clear ENT: Nares clear. Mucous membranes moist. TM pearly begum with sharp light reflex bilaterally; no tragal tenderness. Oropharynx erythematous without lesions. Tonsils not enlarged and without exudate, no drooling, no hoarseness, no trismus, uvula midline. NECK: Supple. No lymphadenopathy CHEST: Clear to auscultation, breath sounds equal. No wheezing, rhonchi, rales, or stridor. No respiratory distress, speaks in full sentences. HEART: Regular rate and rhythm. No murmur heard. SKIN: Warm, dry, no rash. NEURO: Alert and oriented x3. PSYCH: Normal mood and affect Course Course Emergency Course: Patient is aware of diagnosis, understands and agrees to treatment plan. Anticipatory guidance given. Patient agrees to follow-up as directed and is aware of reasons to seek care at the emergency department. Portions of this record may have been created with voice recognition software Level of Care: Express Care Visit Vital Signs Vital signs: Reviewed. MDM - URI/Sore Throat MDM Narrative Medical decision making narrative: Differential diagnosis considered: Carvalho virus, strep pharyngitis, allergic rhinitis, upper respiratory tract infection, sinusitis, rhinosinusitis, nasopharyngitis. viral pharyngitis, otitis media, otitis externa, pneumonia, bronchitis, viral cough syndrome, viral syndrome, and influenza. Exam findings show no acute concerns or changes; patient is non-toxic appearing and is in no distress. Patient is appropriate for outpatient treatment and follow-up. Lab Data Attestation: I reviewed the patient's lab results. Critical Care Time Critical Care Time Critical Care Time: No Discharge Plan Discharge Clinical Impression: Acute streptococcal pharyngitis Patient Disposition: Home Condition: Stable Instructions: Antibiotic Form, Strep Throat (ED) Additional Instructions: -Take the medication as prescribed. Throw away the toothbrush after 24hours of antibiotic. -Eat and drink things that are easy to swallow, like tea or soup, or popsicles to suck on. -Oral rinses such as: Salt water gargles and/or may use topical anesthetic (eg. Chloraseptic spray) or lozenges to relieve dryness or throat pain). -Take Tylenol and ibuprofen as needed for pain and fever as directed. -Frequent hand washing or hand battalion chief is one of the best ways to prevent spread of infection. -Follow up with primary care provider in 2-3 days if condition is not improving; or seek ER visit if you have trouble breathing, cannot drink enough fluids, have muffled voice, difficulty opening your mouth, or severe swelling. Patient Language: Portuguese Prescriptions: New penicillin V potassium 500 mg tablet 500 mg PO Q12H 10 Days Qty: 20 0RF No Action fluoxetine [Prozac] 40 mg capsule 40 mg PO DAILY Qty: 90 2RF Follow-up/Referrals: Dakota Castillo DO [Primary Care Provider] - Stand Alone Forms: Work/School Release IP Time of Disposition: 15:05
[2025-05-05 14:48] VITALS: BP 122/80; PULSE 78; RESP 18; TEMP 36.3; O2SAT 99
[2025-05-05 14:56] LABS: EDSTREPNEGPOS1 Positive (Negative)
== END 2025-05-05 15:09 | disposition home or self-care (01) ==
PROVIDERS: Emergency Provider Nurse Practitioner; PCP Internal Medicine
DX: J02.0 Streptococcal pharyngitis (principal); F17.290 Nicotine dependence, other tobacco product, uncomplicated; E66.9 Obesity, unspecified; Z68.36 Body mass index [BMI] 36.0-36.9, adult
CPT/HCPCS: 87880; 99213; G0463

== ENCOUNTER 2025-08-30 18:11 | Emergency (ER) | payer BC, OTHER, SELFPAY ==
[2025-08-30 18:25] VITALS: BP 111/88; PULSE 86; RESP 16; TEMP 36.9; O2SAT 100
--- NOTE | 2025-08-30 18:43 | ED_ITS ---
HPI - URI/Sore Throat General Chief Complaint: Upper Respiratory Infection Stated Complaint: URI Source: patient Mode of arrival: ambulatory Limitations: no limitations History of Present Illness HPI Narrative: this is a very pleasant 25-year-old male patient who presents to the urgent care with complaints of sinus congest, ear pressure, cough, nausea, and upset stomach for 5 days. patient reports he has a sinus infection at this time every year, he also believes his upset stomach is about his father, his father has cancer and he just recently put him on hospice. He denies any vomiting, he denies any hematemesis he denies any GI bleeding. Denies any diarrhea. He states he has no fever chills. MD elicited complaint: cough, nasal congestion and sinus pain Onset (ago): day(s) (5) Consistency: constant Description of mucous: green Able to tolerate fluids by mouth: Yes Exacerbating factors: nothing Relieving factors: nothing Associated symptoms: rhinorrhea, nasal congestion and ear pain (ear fullness) Treatments prior to arrival: none Related Data Allergies Allergy/AdvReac Type Severity Reaction Status Date / Time No Known Allergies Allergy Verified 08/30/25 18:32 Review of Systems Review of Systems: All systems reviewed & are unremarkable except as noted in HPI and below [facility] Past Medical History Medical History (Updated 08/30/25 @ 19:05 by Michelle German APRN) BMI 37.0-37.9, adult BMI 36.0-36.9,adult BMI 39.0-39.9,adult Abnormal TSH Obesity (BMI 30.0-34.9) Surgical History Surgical History No significant past surgical history Family History Family History (Updated 08/09/25 @ 15:33 by LINA Maynard) Father Diabetes mellitus Hypertension Pancreatic cancer Grandparent Breast cancer Alcoholism Mother Alive and well Acute migraine Sibling No problems noted. Social History Social History (Updated 08/09/25 @ 15:33 by LINA Maynard) Tobacco type: cigars Second hand tobacco smoke exposure: No Alcohol intake: current Substance use: current Substance use type: marijuana Do You Feel Safe in your Home?: Yes Lack of Transportation: No Lack of Food: Never True Current Housing: I Have Housing Concerned About Future Housing: No Difficulty Paying Gas/Electric Bills: No Difficulty Paying for Meds: No Currently Unemployed: No Education: Bachelor's Degree Difficulty w/ Childcare or Family Care: No Living arrangements: with family Occupation/Education: occupation Additional occupation/education comments: [email or web address] Gender identity (if verbalized by the patient): Male Exam Const: General: healthy appearing Nutritional Appearance: well nourished Orientation/consciousness: patient oriented x3 Limitations: no limitations HENMT: Head: normal to inspection Ears: TM abnormal bulging bilateral and with fluid behind the TM bilateral Face/Nose/Sinus: Nasal discharge present mucoid Face and sinus: sinus tenderness frontal and maxillary Mouth: Yes Normal oral and palatal mucosa present Teeth and gingiva: dentition normal Throat: posterior oropharynx normal Eyes: Conjunctivae: conjunctivae normal Pupils: Equal, round and reactive pupils present EOM: EOMs intact bilaterally Neck: Neck: normal visual inspection Resp: Effort & Inspection: normal respiratory effort Auscultation: clear to auscultation bilaterally Cardio: Rate: regular rate Rhythm: regular rhythm GI: GI Palp: Yes Soft to palpation Auscultation: normal bowel sounds Skin: General skin exam: normal color Rashes: no rashes Wounds: no wounds Neuro: General: patient oriented x3 Cranial nerves: Yes Nystagmus not present Speech: normal speech Gait exam (Neuro): Normal gait present Extrem: General: normal to inspection, no clubbing, cyanosis or edema and no pedal edema Psych: Mental Status: mental status grossly normal Affect: normal affect Attitude: cooperative Course Course Emergency Course: This is a very pleasant 25-year-old male patient who presents to the urgent care with complaints of sinus congest, ear pressure, cough, nausea, and upset stomach for 5 days. patient reports he has a sinus infection at this time every year, he also believes his upset stomach is about his father, his father has cancer and he just recently put him on hospice. He denies any vomiting, he denies any hematemesis he denies any GI bleeding. Denies any diarrhea. He states he has no fever chills. vital signs stable COVID influenza swabs ordered, results of negative Indicated this patient on results, exam findings and diagnosis and treatments. he verbalizes understanding answered all questions to satisfaction he is agreeable to the plan. Educated patient to Increase fluids rest, continue symptomatic management including cough cold medicine, vicks vapor rub, mucinex, vaporizer, Tylenol and ibuprofen as needed for aches pains and fever, continue with antibiotic as prescribed continue with prednisone as prescribed, continue with Zofran as needed for nausea, bland diet, advance as tolerated, follow-up with primary care provider next 1-2 days for further evaluation and exam return to the emergency department or urgent care with any worrisome sign or symptom, he denies any further needs or concerns to be addressed prior to discharge Level of Care: Express Care Visit Vital Signs Vital signs: Vital Signs Temperature 98.4 F 08/30/25 18:25 Pulse Rate 86 08/30/25 18:25 Respiratory Rate 16 08/30/25 18:25 Blood Pressure 111/88 08/30/25 18:25 Pulse Oximetry 100 08/30/25 18:25 Oxygen Delivery Room Air 08/30/25 18:25 Temperature 98.4 F 08/30/25 18:25 Pulse Rate 86 08/30/25 18:25 Respiratory Rate 16 08/30/25 18:25 Blood Pressure 111/88 08/30/25 18:25 Pulse Oximetry 100 08/30/25 18:25 Oxygen Delivery Room Air 08/30/25 18:25 MDM - URI/Sore Throat MDM Narrative Medical decision making narrative: This is a very pleasant 25-year-old male patient who presents to the urgent care with complaints of sinus congest, ear pressure, cough, nausea, and upset stomach for 5 days. patient reports he has a sinus infection at this time every year, he also believes his upset stomach is about his father, his father has cancer and he just recently put him on hospice. He denies any vomiting, he denies any hematemesis he denies any GI bleeding. Denies any diarrhea. He states he has no fever chills. vital signs stable COVID influenza swabs ordered, results of negative Indicated this patient on results, exam findings and diagnosis and treatments. he verbalizes understanding answered all questions to satisfaction he is agreeable to the plan. Educated patient to Increase fluids rest, continue symptomatic management including cough cold medicine, vicks vapor rub, mucinex, vaporizer, Tylenol and ibuprofen as needed for aches pains and fever, continue with antibiotic as prescribed continue with prednisone as prescribed, continue with Zofran as needed for nausea, bland diet, advance as tolerated, follow-up with primary care provider next 1-2 days for further evaluation and exam return to the emergency department or urgent care with any worrisome sign or symptom, he denies any further needs or concerns to be addressed prior to discharge Differential Diagnosis Differential diagnosis: Likely upper respiratory infection, otitis media, sinusitis, viral infection, bronchitis, influenza and pharyngitis Medical Records Attestation: I reviewed the patient's medical records. Lab Data Attestation: I reviewed the patient's lab results. Labs: Lab Results 08/30/25 Range/Units 18:57 POC Influenza A Ag Negative (Negative) POC Influenza B Ag Negative (Negative) POC SARS CoV-2 Ag Negative (Negative) Discharge Plan Discharge Clinical Impression: Sinusitis Patient Disposition: Home Condition: Stable Instructions: Antibiotic Form, Sinusitis (ED) Additional Instructions: Increase fluids rest continue symptomatic management including cough cold medicine, vicks vapor rub, mucinex, vaporizer, Tylenol and ibuprofen as needed for aches pains and fever continue with antibiotic as prescribed continue with prednisone as prescribed continue with Zofran as needed for nausea bland diet advance as tolerated follow-up with primary care provider next 1-2 days for further evaluation and exam return to the emergency department or urgent care with any worrisome sign or symptom Patient Language: Emir[place] Prescriptions: New azithromycin [Zithromax Z-Checo] 250 mg tablet See Rx Instructions .ROUTE .COMPLEX Qty: 6 0RF Rx Instructions: For 250 mg dose pack: take 500 mg today (day 1), then 250 mg for 4 days (days 2-5) prednisone 20 mg tablet 20 mg PO BID Qty: 10 0RF ondansetron 4 mg tablet,disintegrating 4 mg PO Q8H PRN (Reason: nausea and vomiting) Qty: 12 0RF No Action venlafaxine [Effexor XR] 150 mg capsule,extended release 24hr 150 mg PO DAILY Qty: 90 1RF Follow-up/Referrals: Dakota Castillo DO [Primary Care Provider, Internal Medicine] Time of Disposition: 19:06
[2025-08-30 18:59] LABS: EDCOVIDSCREEN Negative (Negative); EDINFLUASCREEN Negative (Negative); EDINFLUBSCREEN Negative (Negative)
== END 2025-08-30 19:09 | disposition home or self-care (01) ==
PROVIDERS: Emergency Provider Nurse Practitioner Family; PCP Internal Medicine
DX: J32.9 Chronic sinusitis, unspecified (principal); Z20.822 Contact with and (suspected) exposure to COVID-19; F12.90 Cannabis use, unspecified, uncomplicated; E66.9 Obesity, unspecified; Z68.36 Body mass index [BMI] 36.0-36.9, adult
CPT/HCPCS: 87426; 87804; 99213; G0463